=== PATIENT | female | born 1965 | race Caucasian/White ===

== ENCOUNTER → 2016-09-25 | Outpatient (REF) | payer OTHER ==
[~2016-09-25] MED LIST: /BUSP5TA; /ESCI20TA; /ESCI20TA OR; /FENT25PA TD; /ONDA4TA; Buspar OR; COLA100C2 OR; HYOMAX OR; HYOMAX PO; HYOMAX-SL; IBUP400T OR; LISI20TA5; LISI40TA; LISI40TA OR; LORTAB; NEUR100C OR; OMEP20TA7 OR; PRIL40CA; TRAM50TA2; TRAM50TA2 OR; VICO5TAB; VICO5TAB OR; ZANA4CAP OR; [UNRECOGNIZED DRUG - OTHER]; astelin
[2016-09-25 11:56] LABS: MEAN CORPUSCULAR HGB CONC 34.2 g/dl (32.0-36.5); MEAN CORPUSCULAR VOLUME 87.8 fl (80.0-96.0); RED CELL DISTRIBUTION WIDTH 13.9 % (11.5-14.5); WHITE BLOOD COUNT 4.2 K/mm3 (4.0-10.0)
[2016-09-25 12:31] LABS: ALBUMIN/GLOBULIN RATIO 1.54 (1.00-1.93); ALKALINE PHOSPHATASE 71 U/L (45-117); ALT/SGPT 26 U/L (12-78); ANION GAP 10 MEQ/L (8-16); AST/SGOT 16 U/L (15-37); BLOOD UREA NITROGEN 10 MG/DL (7-18); CALCIUM LEVEL 9.2 MG/DL (8.5-10.1); CARBON DIOXIDE LEVEL 27 MEQ/L (21-32); CHLORIDE LEVEL 107 MEQ/L (98-107); CHOLESTEROL LEVEL 145 MG/DL (<200); CREATININE FOR GFR 0.88 MG/DL (0.55-1.02); GLOMERULAR FILTRATION RATE > 60.0 (>51); GLUCOSE, FASTING 91 MG/DL (70-105); PERCENT SATURATION 29.8 % (13.2-37.4); POTASSIUM SERUM 4.4 MEQ/L (3.5-5.1); SODIUM LEVEL 144 MEQ/L (136-145); TOTAL IRON BINDING CAPACITY 319 UG/DL (250-450); TOTAL PROTEIN 6.6 GM/DL (6.4-8.2); TRIGLYCERIDES LEVEL 118 MG/DL (<150)
== END ==
LOC: M LABDRAW1 11:42
PROVIDERS: ATTEND Family Medicine
DX: D64.9 Anemia, unspecified (principal); E03.9 Hypothyroidism, unspecified

== ENCOUNTER → 2017-02-03 | Outpatient (CLI) | payer OTHER ==
--- NOTE | 2017-02-05 11:38 | SLEEPCENT ---
DATE OF PROCEDURE: 02/03/2017 REQUESTING PROVIDER: Sun Guillen NP INTERPRETATION: Nocturnal polysomnography was performed due to concern for obstructive sleep apnea syndrome in this patient with a history of excessive somnolence. 8 hours and 29 minutes of data were reviewed. There were 425 minutes of sleep identified. Sleep latency was mildly prolonged at 24 minutes. Rapid eye movement (REM) latency was also mildly prolonged at 152 minutes. Sleep architecture was fair with three REM periods. Significant fragmentation was seen, particularly early in the study. Overall sleep efficiency was 84%. The patient's electrocardiogram (EKG) showed a sinus rhythm with an average heart rate of 62 beats per minute. Electroencephalogram (EEG) showed reasonably normal waveforms for awake and sleep. There were 93 respiratory events identified of 10 seconds in duration or greater for an apnea-hypopnea index of 13.1. The events were primarily obstructive, not exclusive to sleep stage, more common but not exclusive in the supine posture. Arousals from respiratory events occurred 7.5 times per hour. Oxygen desaturations were seen into the mid 80s. There was also some limb activity appreciated, two trains of 30 events. Limb movement arousal index of 8.5. IMPRESSION: 1. Obstructive sleep apnea syndrome (G47.33). Apnea-hypopnea index of 13.1. 2. Mild periodic limb movement disorder (G47.61). Limb movement arousal index of 8.5. RECOMMENDATIONS: The patient should be encouraged to return to the sleep disorder center for pressure therapy. In the interim, alcohol and sedative avoidance should be practiced and caution exercised during the operation of motor vehicles. Pending response to pressure therapy, interventions to reduce the frequency of arousals from limb activity may also be helpful.
== END ==
LOC: M SLEEP 19:54
PROVIDERS: ATTEND Nurse Practitioner Adult Health
DX: G47.33 Obstructive sleep apnea (adult) (pediatric) (principal); G47.61 Periodic limb movement disorder

== ENCOUNTER → 2017-02-18 | Outpatient (CLI) | payer OTHER ==
--- NOTE | 2017-02-24 21:33 | SLEEPCENT ---
DATE OF PROCEDURE: 02/18/2017 REFERRING PHYSICIAN: Sun Guillen Nocturnal polysomnography was performed for the titration of pressure therapy in this patient with obstructive sleep apnea syndrome, apnea-hypopnea index of 13. For testing, the patient was fit with a GreenPal Simplus full face mask of small size. 4 cm of water pressure were applied to the circuit and the lights were extinguished. 8 hours and 24 minutes of data were reviewed. There were 337 minutes of sleep identified. Sleep latency was prolonged at 70 minutes. Rapid eye movement latency was prolonged at 150 minutes. Sleep architecture improved with optimal pressure therapy. There was some fragmentation late in the study. Two REM periods were appreciated. Overall sleep efficiency was 68.1%. The patient's EKG showed a sinus rhythm with an average heart rate of 54 beats per minute. EEG showed reasonably normal waveforms for awake and sleep. Respiratory events were found best palliated with CPAP at a pressure +7. CPAP tolerance was good. There was some limb activity noted. Three trains of 30 events. Limb movement arousal index was 8.9 consistent with the diagnostic night. IMPRESSION: 1. Obstructive sleep apnea syndrome (G47.33). 2. Mild periodic limb movement disorder (G47.61). RECOMMENDATION: Nightly use of pressure therapy at 7 cm of water should be sufficient to address the patient's respiratory events. Should sleep symptoms persist interventions to reduce the frequency of arousal from limb activity may also be helpful.
== END ==
LOC: M SLEEP 19:42
PROVIDERS: ATTEND Nurse Practitioner Adult Health
DX: G47.33 Obstructive sleep apnea (adult) (pediatric) (principal); G47.61 Periodic limb movement disorder

== ENCOUNTER → 2018-11-02 | Outpatient (REF) | payer OTHER ==
[~2018-11-02] MED LIST changes: -/ESCI20TA; -/ESCI20TA OR; -/FENT25PA TD; -/ONDA4TA; +FENT1DIS14 TD; +LEXA1TAB2; +LEXA1TAB2 OR; +ONDA-1
[2018-11-02 13:16] LABS: ALBUMIN 4.2 GM/DL (3.2-5.2); ALT/SGPT 18 U/L (12-78); BILIRUBIN,TOTAL 1.1 MG/DL (0.2-1.0); BLOOD UREA NITROGEN 13 MG/DL (7-18); CARBON DIOXIDE LEVEL 27 MEQ/L (21-32); CHLORIDE LEVEL 107 MEQ/L (98-107); CHOLESTEROL LEVEL 183 MG/DL (<200); CHOLESTEROL RISK RATIO 3.519 (<5); CREATININE FOR GFR 0.77 MG/DL (0.55-1.30); GLOMERULAR FILTRATION RATE > 60.0 (>51); GLUCOSE, FASTING 86 MG/DL (70-100); HDL CHOLESTEROL 52 MG/DL (>40); IRON (FE) 91 UG/DL (50-170); LDL CHOLESTEROL 110 MG/DL (<100); NON-HDL-C 131 MG/DL; PERCENT SATURATION 35.1 % (13.2-45.0); POTASSIUM SERUM 3.7 MEQ/L (3.5-5.1); SODIUM LEVEL 141 MEQ/L (136-145); TOTAL IRON BINDING CAPACITY 259 UG/DL (250-450); TOTAL PROTEIN 6.9 GM/DL (6.4-8.2); TRIGLYCERIDES LEVEL 104 MG/DL (<150); VITAMIN B12 LEVEL 496 PG/ML (247-911)
[2018-11-02 14:05] LABS: HEMATOCRIT 38.6 % (36.0-47.0); HEMOGLOBIN 12.8 g/dl (12.0-15.5); MEAN CORPUSCULAR HEMOGLOBIN 31.9 pg (27.0-33.0); MEAN CORPUSCULAR HGB CONC 33.2 g/dl (32.0-36.5); MEAN CORPUSCULAR VOLUME 96.3 fl (80.0-96.0); PLATELET COUNT, AUTOMATED 179 10^3/uL (150-450); RED BLOOD COUNT 4.01 10^6/uL (4.00-5.40); WHITE BLOOD COUNT 3.5 10^3/uL (4.0-10.0)
== END ==
LOC: M LABDRAW1 11:49
PROVIDERS: ATTEND Family Medicine
DX: R10.9 Unspecified abdominal pain (principal); D64.9 Anemia, unspecified; R53.83 Other fatigue

== ENCOUNTER → 2018-11-04 | Outpatient (CLI) | payer OTHER ==
[~2018-11-04] MED LIST changes: +GASTROGRAFIN SOLUTION 30ML (Q9963) As Ordered ONE; +ISOVUE-370 76% 100ML VIAL (Q9967) As Ordered ONE
--- NOTE | 2018-11-04 14:59 | REP ---
Clinical: Fatigue. Comparison: 07/31/2013 . Technique: PA and lateral. Findings: The mediastinum and cardiac silhouette are normal. The lung marion are clear and without acute consolidation, effusion, or pneumothorax. The skeletal structures are intact and normal. Impression: 1. No acute cardiopulmonary process. Electronically Signed by Nitin Walter MD 11/04/2018 02:50 P
--- NOTE | 2018-11-04 16:46 | REP ---
Clinical: Left lower quadrant pain. Technique: Axial contrast enhanced images from the lung bases to the pubic symphysis using oral (per protocol) and 100 ml Isovue 370 intravenous contrast material with coronal and sagittal re-formations. Findings: The large bowel is collapsed, but mucosal thickening and mild colitis involving the distal transverse through sigmoid colon cannot be excluded. The small bowel is unremarkable and there is no evidence for obstruction. Normal terminal ileum, cecum, and appendix identified in the right lower quadrant. Liver, spleen, pancreas, bilateral adrenal glands and kidneys are normal. A evidence for prior cholecystectomy. Pelvis demonstrates normal bladder and evidence for prior hysterectomy. No ascites. No free air. No obvious adenopathy. Abdominal aorta without aneurysm or dissection. Musculoskeletal structures demonstrate age-related changes without significant focal osseous abnormality. Lung bases are clear. Impression: 1. Cannot exclude a mild colitis involving the distal transverse through sigmoid colon and correlation is recommended. 2. Remainder examination appears normal. Electronically Signed by Nitin Walter MD 11/04/2018 04:37 P
== END ==
LOC: M RAD 14:19
PROVIDERS: ATTEND Family Medicine
DX: R10.32 Left lower quadrant pain (principal); K56.699 Other intestinal obstruction unspecified as to partial versus complete obstruction
CPT/HCPCS: 71046; 74177; Q9963; Q9967

== ENCOUNTER 2019-04-02 16:32 | Emergency (ER) | payer OTHER ==
[~2019-04-02] VITALS: Ht 162.6 cm; Wt 62.6 kg
[~2019-04-02 16:32] MED LIST changes: -GASTROGRAFIN SOLUTION 30ML (Q9963) As Ordered ONE; -ISOVUE-370 76% 100ML VIAL (Q9967) As Ordered ONE
[2019-04-02] MEDS ORDERED: AMOX875T2 (16:39)
[2019-04-02] MEDS ORDERED: LIDOCAINE 1% MDV 20ML VIAL SC ONE (17:15)
[2019-04-02 17:45] VITALS: BP 140/70
== END 2019-04-02 18:16 | disposition home or self-care (01) ==
LOC: M ED 16:32
DX: S61.411A Laceration without foreign body of right hand, initial encounter (principal); W25.XXXA Contact with sharp glass, initial encounter; Y92.099 Unspecified place in other non-institutional residence as the place of occurrence of the external cause; Y93.89 Activity, other specified; Y99.9 Unspecified external cause status; Z86.73 Personal history of transient ischemic attack (TIA), and cerebral infarction without residual deficits; I10 Essential (primary) hypertension; J45.909 Unspecified asthma, uncomplicated; J30.2 Other seasonal allergic rhinitis; Z90.49 Acquired absence of other specified parts of digestive tract; F41.9 Anxiety disorder, unspecified; F32.9 Major depressive disorder, single episode, unspecified; Z88.8 Allergy status to other drugs, medicaments and biological substances

== ENCOUNTER → 2019-09-13 | Outpatient (CLI) | payer OTHER ==
[~2019-09-13] MED LIST changes: +AMOX875T2
[2019-09-13 07:01] LABS: HEMATOCRIT 41.3 % (36.0-47.0); HEMOGLOBIN 13.6 g/dl (12.0-15.5); MEAN CORPUSCULAR HEMOGLOBIN 31.9 pg (27.0-33.0); MEAN CORPUSCULAR HGB CONC 32.9 g/dl (32.0-36.5); MEAN CORPUSCULAR VOLUME 96.9 fl (80.0-96.0); PLATELET COUNT, AUTOMATED 183 10^3/uL (150-450); RED BLOOD COUNT 4.26 10^6/uL (4.00-5.40); WHITE BLOOD COUNT 4.4 10^3/uL (4.0-10.0)
[2019-09-13 07:18] LABS: HEMOGLOBIN A1c 4.6 %
[2019-09-13 07:38] LABS: ALBUMIN 4.3 GM/DL (3.2-5.2); ALT/SGPT 21 U/L (12-78); BILIRUBIN,TOTAL 0.8 MG/DL (0.2-1.0); BLOOD UREA NITROGEN 12 MG/DL (7-18); CALCIUM LEVEL 9.3 MG/DL (8.5-10.1); CARBON DIOXIDE LEVEL 31 MEQ/L (21-32); CHLORIDE LEVEL 105 MEQ/L (98-107); CHOLESTEROL LEVEL 205 MG/DL (<200); CHOLESTEROL RISK RATIO 2.971 (<5); CREATININE FOR GFR 0.78 MG/DL (0.55-1.30); GLOMERULAR FILTRATION RATE > 60.0 (>51); GLUCOSE, FASTING 82 MG/DL (70-100); HDL CHOLESTEROL 69 MG/DL (>40); IRON (FE) 91 UG/DL (50-170); LDL CHOLESTEROL 120 MG/DL (<100); NON-HDL-C 136 MG/DL; PERCENT SATURATION 32.5 % (13.2-45.0); POTASSIUM SERUM 3.8 MEQ/L (3.5-5.1); SODIUM LEVEL 141 MEQ/L (136-145); TOTAL IRON BINDING CAPACITY 280 UG/DL (250-450); TOTAL PROTEIN 7.5 GM/DL (6.4-8.2); TRIGLYCERIDES LEVEL 82 MG/DL (<150)
== END ==
LOC: M LAB 06:19
PROVIDERS: ATTEND Family Medicine
DX: R53.83 Other fatigue (principal); D64.9 Anemia, unspecified; E03.9 Hypothyroidism, unspecified

== ENCOUNTER → 2019-09-22 | Outpatient (CLI) | payer OTHER ==
[~2019-09-22] MED LIST changes: +E-Z-GAS II EFFERVESCENT PACKET (SODIUM BICARB./CITRIC ACID/SIMETHICONE) As Ordered ONE; +E-Z-HD 98% w/w 340GM SUSP BTL As Ordered ONE; +E-Z-PAQUE 96% w/w SUSP 176GM BTL As Ordered ONE
--- NOTE | 2019-09-22 17:11 | REP ---
Examination Requested: Upper G.I. Series With KUB Reason For Exam: Abdomen pain Upper GI Air Contrast The procedure was performed by SANDOVAL Powell, under the direct supervision of Dr. Pineda. The images were reviewed with Dr. Pineda. The freelance designer film shows no organomegaly or pathological masses. The intestinal gas pattern appears normal. There are surgical clips in the right upper quadrant. Liquid barium and gas producing crystals were given in the erect position as well as liquid barium in the prone oblique position in order to perform a double contrast upper GI examination. The oral and pharyngeal stages of deglutition were unremarkable. Esophageal transport is efficient and there is no esophagitis, stricture, or mucosal ring noted. There is no hiatal hernia. Gastroesophageal reflux was not visualized throughout the course of the exam. The stomach murillo are normally outlined. The rugal folds are smooth and regular. There is no gastritis, neoplasm, ulcer disease noted. The duodenal murillo are normally outlined. The mucosal folds are smooth and regular. There is no duodenitis, peptic ulcer disease, or neoplasm noted. The visualized portion of the proximal small bowel appears normal in course and caliber. Impression: 1. Unremarkable upper GI study. 0.4 minutes of fluoroscopy time was utilized for this procedure. Some fluoroscopic images are performed with last image hold technology. These images require no additional radiation. Reviewed by SANDOVAL Ta 09/22/2019 03:48 P Electronically Signed by Hebert Pineda MD 09/22/2019 05:01 P
== END ==
LOC: M RAD 08:50
PROVIDERS: ATTEND Family Medicine
DX: R10.9 Unspecified abdominal pain (principal)

== ENCOUNTER → 2019-12-04 | Outpatient (CLI) | payer OTHER ==
[~2019-12-04] MED LIST changes: -E-Z-GAS II EFFERVESCENT PACKET (SODIUM BICARB./CITRIC ACID/SIMETHICONE) As Ordered ONE; -E-Z-HD 98% w/w 340GM SUSP BTL As Ordered ONE; -E-Z-PAQUE 96% w/w SUSP 176GM BTL As Ordered ONE
[2019-12-04 09:58] LABS: HEMATOCRIT 39.2 % (36.0-47.0); HEMOGLOBIN 12.9 g/dl (12.0-15.5); MEAN CORPUSCULAR HEMOGLOBIN 31.2 pg (27.0-33.0); MEAN CORPUSCULAR HGB CONC 32.9 g/dl (32.0-36.5); MEAN CORPUSCULAR VOLUME 94.9 fl (80.0-96.0); PLATELET COUNT, AUTOMATED 161 10^3/uL (150-450); RED BLOOD COUNT 4.13 10^6/uL (4.00-5.40); WHITE BLOOD COUNT 4.1 10^3/uL (4.0-10.0)
[2019-12-04 10:26] LABS: BLOOD UREA NITROGEN 12 MG/DL (7-18); CREATININE FOR GFR 0.78 MG/DL (0.55-1.30); GLUCOSE, FASTING 87 MG/DL (70-100)
[2019-12-04 10:27] LABS: ALT/SGPT 20 U/L (12-78); BILIRUBIN,TOTAL 0.7 MG/DL (0.2-1.0); CALCIUM LEVEL 9.1 MG/DL (8.5-10.1); CARBON DIOXIDE LEVEL 30 MEQ/L (21-32); CHLORIDE LEVEL 107 MEQ/L (98-107); CHOLESTEROL LEVEL 212 MG/DL (<200); CHOLESTEROL RISK RATIO 3.117 (<5); GLOMERULAR FILTRATION RATE > 60.0 (>51); HDL CHOLESTEROL 68 MG/DL (>40); IRON (FE) 89 UG/DL (50-170); LDL CHOLESTEROL 130 MG/DL (<100); NON-HDL-C 144 MG/DL; POTASSIUM SERUM 4.1 MEQ/L (3.5-5.1); SODIUM LEVEL 142 MEQ/L (136-145); THYROXINE (T4) 6.4 UG/DL (4.5-12.0); TOTAL IRON BINDING CAPACITY 262 UG/DL (250-450); TOTAL PROTEIN 7.1 GM/DL (6.4-8.2); TRIGLYCERIDES LEVEL 69 MG/DL (<150)
[2019-12-04 10:29] LABS: TOTAL T3 57.6 NG/DL (60.0-181.0); VITAMIN B12 LEVEL 745 PG/ML (247-911)
[2019-12-04 10:41] LABS: TOTAL 25(OH) VITAMIN D 108.2 NG/ML (30.0-100.0)
== END ==
LOC: M LAB 09:17
PROVIDERS: ATTEND Family Medicine
DX: D64.9 Anemia, unspecified (principal); R53.83 Other fatigue

== ENCOUNTER → 2019-12-07 | Outpatient (CLI) | payer OTHER ==
--- NOTE | 2019-12-08 05:52 | REP ---
Clinical: Enlarged thyroid gland. Technique: Real time armendariz scale and color evaluation using linear high frequency transducer. Findings: The thyroid gland is normal in contour, size, echogenicity and vascularity. Right lobe measures 4.4 x 1.0 x 1.6 cm. Isthmus measures 2 mm in width. Left lobe measures 4.0 x 1.0 x 1.0 cm. Midline anterior to the thyroid gland is a complex cystic lesion measuring 3.2 x 2.8 x 2.9 cm. Suggesting a large thyroglossal duct cyst. Impression: 1. Normal thyroid gland. 2. Complex cystic lesion midline anterior to the thyroid likely representing thyroglossal duct cyst. Correlation with physical examination and MRI of the neck may be warranted for confirmation.
== END ==
LOC: M WHC 09:50
PROVIDERS: ATTEND Family Medicine
DX: E04.9 Nontoxic goiter, unspecified (principal)

== ENCOUNTER → 2020-01-18 | Outpatient (REF) | payer OTHER | LOC: M LAB REF 15:47 | PROVIDERS: ATTEND Physician Assistant | DX: Z20.828 Contact with and (suspected) exposure to other viral communicable diseases (principal); J06.9 Acute upper respiratory infection, unspecified ==

== ENCOUNTER → 2020-03-01 | Outpatient (CLI) | payer OTHER ==
--- NOTE | 2020-04-23 16:00 | ECGEPIP ---
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
[2020-04-28 12:49] LABS: BLOOD UREA NITROGEN 10 MG/DL (7-18); CALCIUM LEVEL 9.4 MG/DL (8.5-10.1); CARBON DIOXIDE LEVEL 32 MEQ/L (21-32); CHLORIDE LEVEL 104 MEQ/L (98-107); CREATININE FOR GFR 0.72 MG/DL (0.55-1.30); GLOMERULAR FILTRATION RATE > 60.0 (>51); GLUCOSE, FASTING 83 MG/DL (70-100); SODIUM LEVEL 139 MEQ/L (136-145)
[2020-04-28 14:20] LABS: BASO % 0.6 % (0.0-1.0); EOS # 0.1 10^3/uL (0.0-0.5); EOS % 1.9 % (0.0-3.0); HEMATOCRIT 39.5 % (36.0-47.0); HEMOGLOBIN 13.1 g/dl (12.0-15.5); LYMPH # 2.3 10^3/uL (1.5-5.0); LYMPH % 48.7 % (24.0-44.0); MEAN CORPUSCULAR HEMOGLOBIN 31.2 pg (27.0-33.0); MEAN CORPUSCULAR HGB CONC 33.2 g/dl (32.0-36.5); MONO # 0.3 10^3/uL (0.0-0.8); MONO % 6.4 % (0.0-5.0); NEUTROPHILS % 42.2 % (36.0-66.0); PLATELET COUNT, AUTOMATED 186 10^3/uL (150-450); WHITE BLOOD COUNT 4.7 10^3/uL (4.0-10.0)
== END ==
LOC: M LAB 13:45
PROVIDERS: ATTEND Podiatrist
DX: Z01.818 Encounter for other preprocedural examination (principal); M20.12 Hallux valgus (acquired), left foot; M21.622 Bunionette of left foot; M79.672 Pain in left foot

== ENCOUNTER → 2020-03-07 | Outpatient (CLI) | payer OTHER ==
--- NOTE | 2020-03-27 11:28 | REPMRS ---
Patient History The patient states she has not had a clinical breast exam in over a year. Reductions of both breasts, 2017. Digital Woman Screen Mammo: March 07, 2020 - Exam #: [id number] Bilateral CC and MLO view(s) were taken. Technologist: Radha Mcintosh, Technologist Prior study comparison: 2015, bilateral digital mammo screening bilat. November 14, 2013, bilateral digital mammo screening bilat, performed at [facility]. July 27, 2012, bilateral digital mammo screening bilat, performed at [facility]. FINDINGS: There are scattered fibroglandular densities. The Volpara volumetric breast density category is:B. The patient has undergone bilateral breast reduction surgery. There is a new density in the medial right breast which contains calcifications. This merits further evaluation. This may well be postoperative fat necrosis. There has been no other change in the appearance of the mammogram from the prior studies. There is a mild amount of scattered fibroglandular density which is fairly symmetric. There is no other interval development of dominant mass, architectural distortion, or grouped microcalcification suggestive of malignancy. 3-D tomosynthesis shows no additional findings. Report was delayed due to a protracted computer network disruption experienced by this facility. Assessment: BI-RADS/ACR category 0 mammogram, Incomplete: Need additional imaging evaluation and/or prior mammograms for comparison. Recommendation Ultrasound and special view mammogram of the right breast. This patient's Lifetime Breast Cancer Risk is estimated at 8.7 %. This mammogram was interpreted with the aid of an FDA-approved computer-aided dectection system. Electronically Signed By: Mazin Pineda MD 03/27/20 [id number]
== END ==
LOC: M WHC 06:30
PROVIDERS: ATTEND Family Medicine
DX: Z12.31 Encounter for screening mammogram for malignant neoplasm of breast (principal)

== ENCOUNTER 2020-03-08 06:35 | Day surgery (SDC) | payer OTHER ==
[2020-03-08] MEDS ORDERED: NEOSPORIN GU IRRIG 20 ML VIAL ONE (06:43)
[2020-03-08] MEDS ORDERED: BACITRACIN PWD 50,000 UNITS VIAL ONE (06:43)
[2020-03-08] MEDS ORDERED: ceFAZolin 2 GM/D5W 50 ML IV BAG (J0690 PER 500MG) ONE (06:43)
[2020-03-08] MEDS ORDERED: BUPIVACAINE HCL 0.5% 30 ML VIAL ONE (06:43)
[2020-03-08] MEDS ORDERED: dexameTHASONE 4 MG/ML 1ML VIAL (J1100 PER 1MG) ONE (06:43)
[2020-03-08] MEDS ORDERED: LIDOCAINE 2% MDV 20ML VIAL ONE (06:43)
[2020-03-08] MEDS ORDERED: MIDAZOLAM INJ 2MG/2ML VIAL (J2250 PER 1MG) ONE (07:01)
[2020-03-08] MEDS ORDERED: propofoL 500 MG/50 ML VIAL ONE (07:01)
[2020-03-08] MEDS ORDERED: fentaNYL 100 MCG/2 ML INJECTION (J3010) ONE (07:01)
[2020-03-08] MEDS ORDERED: ONDANSETRON 4MG/2ML VIAL ONE (07:01)
[2020-03-08] MEDS ORDERED: PHENYLephrine HCL 500 MCG/5 ML (100MCG/ML) SYRINGE (J2370) ONE (08:21)
[2020-03-08] MEDS ORDERED: oxyCODONE 5MG TAB ONE (09:48)
--- NOTE | 2020-04-30 10:07 | REP ---
LEFT FOOT PORTABLE HISTORY: Bunionectomy. TECHNIQUE: Three views of the left foot are performed. FINDINGS: Surgical defect is seen in the distal aspect of the first metatarsal affixed by a metallic screw. There is also a surgical defect in the distal fifth metatarsal affixed by a metallic screw. The osseous structures appear well aligned. MTDD
--- NOTE | 2020-05-09 13:04 | RO ---
DATE OF OPERATION: 03/08/2020 SURGEON: Man Yap DPM BRIDGE TOLL COLLECTOR: None. ANESTHESIA: Local monitored anesthesia care (MAC). IRRIGATION: Dilute bacitracin, neomycin, and polymyxin B solution. HEMOSTASIS: Ankle pneumatic tourniquet at 225 mm of mercury for 56 minutes on the left ankle. HARDWARE UTILIZED: An Arthrex headless 3.0 x 18 and an Arthrex headless 2.4 x 14 mm compression screw. PROCEDURE: On 03/08/2020, patient was taken from her hospital room to the operating room and placed on the operating table in the supine position. Following the induction of intravenous (IV) sedation and local and regional anesthesia, left lower extremity was prepped and draped in the usual aseptic manner. Ankle pneumatic tourniquet was rapidly inflated to 225 mm of mercury. Sterile draping was completing and the following procedure was performed: MODIFIED ABDULAZIZ BUNIONECTOMY, INTERNAL SCREW FIXATION, 3.0 MM X 18 MM TIMES ONE, LEFT FOOT: Attention was directed to patient's left foot. There was noted to be a hallux valgus deformity. At this time, a 6 cm incision was placed over the 1st metatarsophalangeal joint medial to the extensor tendon. The incision was deepened into subcutaneous tissues, and all coursing venous tributaries were identified, underscored, clamped, cut, ligated or electrocoagulated as necessary. Linear capsulotomy was performed in the same plane as the original skin incision. The capsule and periosteal structures were dissected free in one continuous layer, dorsally, medially, and laterally, thus creating a capsular periosteal-type envelope. This allowed me to view the hypertrophied medial eminence of the 1st metatarsal, which osteotomized from distal the proximal through the through. This was extirpated from the wound. Attention was then directed into the 1st intermetatarsal space, where dissection was carried down to the level of the conjoined tendon. Conjoined tendon was sharply dissected free from the fibular sesamoid. Attention was directed to the medial surface of the 1st metatarsal, where a V-shaped osteotomy was performed in the distal metaphysis of the 1st metatarsal at the long plantar and short dorsal wing. Upon creation of this osteotomy, the capital fragment was transposed approximately 40% of the width of the shaft of the 1st metatarsal and fixated with a 3.0 x 18 mm headless compression screw. The osteotomy was noted to be stable. The screw did not penetrate the inferior cartilage on direct visualization. The redundant cortical spike was then osteotomized from dorsal to plantar through and through. The wound was flushed with copious amounts of dilute bacitracin, neomycin, and polymyxin B solution. Attention was directed toward closure, where the capsular structures were coapted and maintained utilizing 2-0 Monocryl in a simple interrupted-type fashion. Subcutaneous tissues were coapted and maintained utilizing 4-0 Monocryl in a simple interrupted-type fashion. Skin incisions were coapted and maintained utilizing 5-0 Monocryl in a continuous subcuticular-type fashion. Attention was then directed to the lateral surface of the foot, where the following procedure was performed. CORRECTION OF BUNIONETTE DEFORMITY WITH DISTAL V OSTEOTOMY AND INTERNAL SCREW FIXATION, 2.4 MM X 14 MM TIMES ONE, LEFT FOOT: Attention was directed to the patient's left foot. There was noted to be a tailor's bunion deformity. At this time, a 5 cm lateral incision was placed over the 5th metatarsophalangeal joint. The incision was deepened into subcutaneous tissues, and all coursing venous tributaries were identified, underscored, clamped, cut, ligated or electrocoagulated as necessary. A linear capsulotomy was then performed in the same plane as the original skin incision. The capsular and periosteal structures were then dissected free in one continuous layer dorsally and plantarly. The hypertrophied lateral eminence was then osteotomized from distal to proximal through and through. A V-shaped osteotomy was then performed in the distal metaphysis of the 5th metatarsal and transposed approximately 30-35% of the width of the shaft of the 1st metatarsal. A 2.4 x 12 mm screw was placed across the osteotomy; however, insufficient stability was noted. Therefore, a longer screw, 2.4 x 14 mm screw, was inserted. This provided excellent compression of the osteotomy and was stable in all three cardinal planes. The redundant cortical spike was then osteotomized from dorsal to plantar through and through. The lateral surface was rasped to a smooth contour with a hand-held rasp. The wound was flushed with copious amounts of dilute bacitracin, neomycin, and polymyxin B solution. Capsular structures were coapted and maintained utilizing 2-0 Monocryl in a simple interrupted-type fashion. Subcutaneous tissues were coapted and maintained utilizing 4-0 Monocryl in a simple interrupted-type fashion. Skin incision was coapted and maintained utilizing 5-0 Monocryl in a continuous subcuticular-type fashion. This was additionally reinforced with Steri-Strips. Following the completion of the surgical procedure, 4 mg of dexamethasone sodium phosphate was instilled proximal to the surgical site. Attention was directed toward banding. A sterile compressive bandage was applied consisting of Adaptic, 4 x 4's, 4 x 4 sponge, Lukasz, Kerlix, and Coban. Ankle pneumatic tourniquet was rapidly deflated, and instantaneous capillary filling time was noted to digits 1-5 of the patient's left foot. Patient having apparently tolerated the surgical procedure well was taken from the OR to the recovery room for further monitoring by the anesthesia department. Postoperative instructions were given upon discharge. ROSANNE
== END 2020-03-08 11:25 | disposition home or self-care (01) ==
LOC: M SDC 06:35
PROVIDERS: ATTEND Podiatrist
DX: M21.622 Bunionette of left foot (principal); M20.12 Hallux valgus (acquired), left foot; M79.672 Pain in left foot; E03.9 Hypothyroidism, unspecified; K58.8 Other irritable bowel syndrome; G47.30 Sleep apnea, unspecified; Z88.8 Allergy status to other drugs, medicaments and biological substances; Z79.899 Other long term (current) drug therapy
CPT/HCPCS: 28110; 28296; 73630; 88300; 97116; 97161; C1713; J0690; J1100; J2250; J2370; J2405; J3010

== ENCOUNTER → 2020-04-21 | Outpatient (CLI) | payer OTHER ==
[2020-04-21 14:49] LABS: HEMATOCRIT 39.4 % (36.0-47.0); MEAN CORPUSCULAR HEMOGLOBIN 31.4 pg (27.0-33.0); MEAN CORPUSCULAR VOLUME 95.2 fl (80.0-96.0); PLATELET COUNT, AUTOMATED 195 10^3/uL (150-450); RED BLOOD COUNT 4.14 10^6/uL (4.00-5.40); WHITE BLOOD COUNT 4.3 10^3/uL (4.0-10.0)
[2020-04-21 15:21] LABS: ALT/SGPT 23 U/L (12-78); BILIRUBIN,TOTAL 0.6 MG/DL (0.2-1.0); BLOOD UREA NITROGEN 24 MG/DL (7-18); CALCIUM LEVEL 9.2 MG/DL (8.5-10.1); CARBON DIOXIDE LEVEL 28 MEQ/L (21-32); CHLORIDE LEVEL 107 MEQ/L (98-107); CHOLESTEROL LEVEL 224 MG/DL (<200); CREATININE FOR GFR 0.65 MG/DL (0.55-1.30); GLOMERULAR FILTRATION RATE > 60.0 (>51); GLUCOSE, FASTING 74 MG/DL (70-100); HDL CHOLESTEROL 70 MG/DL (>40); LDL CHOLESTEROL 141 MG/DL (<100); NON-HDL-C 154 MG/DL; POTASSIUM SERUM 4.3 MEQ/L (3.5-5.1); SODIUM LEVEL 139 MEQ/L (136-145); TOTAL PROTEIN 7.1 GM/DL (6.4-8.2); TRIGLYCERIDES LEVEL 67 MG/DL (<150)
[2020-04-21 15:38] LABS: HEMOGLOBIN A1c 5.2 %
[2020-04-22 11:03] LABS: TOTAL 25(OH) VITAMIN D 68.5 NG/ML (30.0-100.0)
== END ==
LOC: M WUC 08:30
PROVIDERS: ATTEND Family Medicine
DX: D64.9 Anemia, unspecified (principal); R53.83 Other fatigue; E03.9 Hypothyroidism, unspecified

== ENCOUNTER → 2020-05-13 | Outpatient (CLI) | payer OTHER ==
--- NOTE | 2020-05-16 11:02 | REP ---
DIGITAL DIAGNOSTIC UNILATERAL RIGHT BREAST MAMMOGRAPHY WITH CAD AND TARGETED RIGHT BREAST SONOGRAPHY HISTORY: Screening mammography from 03/07/2020 showed a grouping of calcifications in the medial aspect of the right breast. Diagnostic imaging was recommended. COMPARISON: Made with 02/19/2016 prior mammography. In the interval since that prior exam, the patient has undergone reduction breast surgery. MAMMOGRAPHIC FINDINGS: Magnified focal spot compression CC mediolateral and mediolateral oblique views are obtained. These confirm the presence of an irregular density containing coarse dystrophic benign appearing calcifications and some punctate calcifications in the right breast medially at approximately 2 to 3 o'clock. Scattered fibroglandular elements are seen. No other mammographic abnormality. The calcifications span an area approximately 8 mm in greatest diameter. TARGETED SONOGRAPHY FINDINGS: The right breast is evaluated superiorly and medially. At 2 o'clock, 2 cm from the nipple, there is a hypoechoic area with its long axis parallel to the skin containing echogenic shadowing foci. No irregular mass lesion is seen. It measures approximately 8 mm in overall dimension. IMPRESSION: Typically benign appearing dystrophic calcifications most consistent with postoperative change possibly fat necrosis. BI-RADS Category is felt to be best assigned as category 3 probably benign right breast findings. Six month follow- up right breast mammography recommended. This mammogram was read with the aid of an FDA approved computer-aided detection device. 3M patient letter: M3. The patients [facility] lifetime risk of breast cancer risk assessment is 8.7%. MTDD
== END ==
LOC: M WHC 08:01
PROVIDERS: ATTEND Family Medicine
DX: R92.2 Inconclusive mammogram (principal); Z98.890 Other specified postprocedural states

== ENCOUNTER → 2020-07-03 | Outpatient (CLI) | payer OTHER ==
--- NOTE | 2020-07-04 04:21 | REP ---
INDICATION: LLQ PAIN, LLQ MASS COMPARISON: 11/04/2018 TECHNIQUE: Axial noncontrast images from the lung bases to the pubic symphysis with coronal and sagittal reformations. This CT examination was performed using the following dose reduction techniques: Automated exposure control, adjustment of mA and/or kv according to the patient's size, and use of iterative reconstruction technique. FINDINGS: Lung bases are clear. Visualized heart and pericardium normal. Liver, spleen, pancreas, bilateral adrenal glands and kidneys are normal. The enteric system is unremarkable and without obstruction or acute inflammatory process. Normal cecum along with terminal ileum and appendix identified in the deep pelvis. Pelvis demonstrates normal bladder and age-appropriate uterus/adnexa. No ascites. No free air. No adenopathy. No focal inflammatory stranding. Abdominal aorta without aneurysm. Musculoskeletal structures are intact and without acute osseous abnormality. IMPRESSION: No acute abdominopelvic pathology appreciated. <Electronically signed by Nitin Walter > 07/04/20 0418
== END ==
LOC: M RAD 15:15
PROVIDERS: ATTEND Family Medicine
DX: R10.2 Pelvic and perineal pain (principal); R10.32 Left lower quadrant pain

== ENCOUNTER → 2020-11-12 | Outpatient (CLI) | payer OTHER ==
[2020-11-12 16:52] LABS: BASO % 0.5 % (0.0-1.0); EOS # 0.1 10^3/uL (0.0-0.5); EOS % 2.3 % (0.0-3.0); HEMATOCRIT 36.9 % (36.0-47.0); HEMOGLOBIN 12.1 g/dl (12.0-15.5); LYMPH # 2.1 10^3/uL (1.5-5.0); LYMPH % 47.2 % (24.0-44.0); MEAN CORPUSCULAR HEMOGLOBIN 32.1 pg (27.0-33.0); MEAN CORPUSCULAR HGB CONC 32.8 g/dl (32.0-36.5); MEAN CORPUSCULAR VOLUME 97.9 fl (80.0-96.0); MONO # 0.3 10^3/uL (0.0-0.8); MONO % 6.7 % (2.0-8.0); NEUTROPHILS # 1.9 10^3/uL (1.5-8.5); NEUTROPHILS % 43.1 % (36.0-66.0); PLATELET COUNT, AUTOMATED 180 10^3/uL (150-450); RED BLOOD COUNT 3.77 10^6/uL (4.00-5.40); WHITE BLOOD COUNT 4.3 10^3/uL (4.0-10.0)
== END ==
LOC: M LAB 16:01
PROVIDERS: ATTEND Student in an Organized Health Care Education/Training Program
DX: Q89.2 Congenital malformations of other endocrine glands (principal)

== ENCOUNTER → 2021-06-25 | Outpatient (CLI) | payer OTHER ==
[2021-06-25 11:15] LABS: HEMATOCRIT 39.8 % (36.0-47.0); HEMOGLOBIN 12.8 g/dl (12.0-15.5); MEAN CORPUSCULAR HGB CONC 32.2 g/dl (32.0-36.5); MEAN CORPUSCULAR VOLUME 96.4 fl (80.0-96.0); PLATELET COUNT, AUTOMATED 169 10^3/uL (150-450); RED BLOOD COUNT 4.13 10^6/uL (4.00-5.40); WHITE BLOOD COUNT 4.4 10^3/uL (4.0-10.0)
[2021-06-25 11:49] LABS: ALBUMIN 3.8 GM/DL (3.2-5.2); ALT/SGPT 19 U/L (12-78); BILIRUBIN,TOTAL 0.5 MG/DL (0.2-1.0); BLOOD UREA NITROGEN 17 MG/DL (7-18); CALCIUM LEVEL 9.5 MG/DL (8.5-10.1); CARBON DIOXIDE LEVEL 29 MEQ/L (21-32); CHLORIDE LEVEL 109 MEQ/L (98-107); CHOLESTEROL LEVEL 205 MG/DL (<200); CHOLESTEROL RISK RATIO 3.253 (<5); CREATININE FOR GFR 0.66 MG/DL (0.55-1.30); FREE T4 0.84 NG/DL (0.76-1.46); GLOMERULAR FILTRATION RATE > 60.0 (>51); GLUCOSE, FASTING 79 MG/DL (70-100); HDL CHOLESTEROL 63 MG/DL (>40); IRON (FE) 87 UG/DL (50-170); LDL CHOLESTEROL 127 MG/DL (<100); NON-HDL-C 142 MG/DL; PERCENT SATURATION 32.8 % (13.2-45.0); POTASSIUM SERUM 4.8 MEQ/L (3.5-5.1); SODIUM LEVEL 143 MEQ/L (136-145); TOTAL IRON BINDING CAPACITY 265 UG/DL (250-450); TOTAL PROTEIN 6.8 GM/DL (6.4-8.2); TRIGLYCERIDES LEVEL 75 MG/DL (<150)
[2021-06-25 11:51] LABS: FOLATE 7.6 NG/ML (>5.4); TOTAL T3 71.3 NG/DL (60.0-181.0); VITAMIN B12 LEVEL 586 PG/ML (247-911)
== END ==
LOC: M LAB 08:29
PROVIDERS: ATTEND Family Medicine
DX: R53.83 Other fatigue (principal); D64.9 Anemia, unspecified; E03.9 Hypothyroidism, unspecified

== ENCOUNTER → 2021-07-28 | Outpatient (CLI) | payer OTHER | LOC: M WHC 11:01 | PROVIDERS: ATTEND Family Medicine | DX: Z12.31 Encounter for screening mammogram for malignant neoplasm of breast (principal); N63.10 Unspecified lump in the right breast, unspecified quadrant; R92.1 Mammographic calcification found on diagnostic imaging of breast ==

== ENCOUNTER → 2021-11-29 | Outpatient (CLI) | payer OTHER ==
[2021-11-29 09:55] LABS: HEMATOCRIT 40.7 % (36.0-47.0); HEMOGLOBIN 13.5 g/dl (12.0-15.5); MEAN CORPUSCULAR HEMOGLOBIN 31.5 pg (27.0-33.0); MEAN CORPUSCULAR HGB CONC 33.2 g/dl (32.0-36.5); MEAN CORPUSCULAR VOLUME 94.9 fl (80.0-96.0); PLATELET COUNT, AUTOMATED 189 10^3/uL (150-450); RED BLOOD COUNT 4.29 10^6/uL (4.00-5.40); WHITE BLOOD COUNT 3.9 10^3/uL (4.0-10.0)
[2021-11-29 10:23] LABS: ALBUMIN 4.1 GM/DL (3.2-5.2); ALT/SGPT 17 U/L (12-78); BILIRUBIN,TOTAL 0.6 MG/DL (0.2-1.0); BLOOD UREA NITROGEN 18 MG/DL (7-18); CALCIUM LEVEL 9.6 MG/DL (8.5-10.1); CARBON DIOXIDE LEVEL 28 MEQ/L (21-32); CHLORIDE LEVEL 109 MEQ/L (98-107); CHOLESTEROL LEVEL 234 MG/DL (<200); CREATININE FOR GFR 0.65 MG/DL (0.55-1.30); GLOMERULAR FILTRATION RATE > 60.0 (>51); GLUCOSE, FASTING 88 MG/DL (70-100); HDL CHOLESTEROL 65 MG/DL (>40); LDL CHOLESTEROL 159 MG/DL (<100); NON-HDL-C 169 MG/DL; POTASSIUM SERUM 4.2 MEQ/L (3.5-5.1); SODIUM LEVEL 141 MEQ/L (136-145); TOTAL PROTEIN 7.2 GM/DL (6.4-8.2); TRIGLYCERIDES LEVEL 52 MG/DL (<150)
[2021-11-29 10:35] LABS: HEMOGLOBIN A1c 4.9 %
== END ==
LOC: M LAB 08:56
PROVIDERS: ATTEND Family Medicine
DX: D64.9 Anemia, unspecified (principal); R53.83 Other fatigue; E03.9 Hypothyroidism, unspecified

== ENCOUNTER → 2024-02-10 | Outpatient (REF) | payer OTHER ==
[2024-02-10 14:24] LABS: PERCENT SATURATION 22.5 % (13.2-45.0)
[2024-02-10 14:26] LABS: FERRITIN 105.6 NG/ML (7.3-270.7)
== END ==
LOC: M LAB REF 12:56
PROVIDERS: ATTEND Internal Medicine
DX: K90.0 Celiac disease (principal); K90.49 Malabsorption due to intolerance, not elsewhere classified

== ENCOUNTER → 2024-04-25 | Outpatient (CLI) | payer OTHER | LOC: M WHC 09:54 | PROVIDERS: ATTEND Internal Medicine | DX: Z12.31 Encounter for screening mammogram for malignant neoplasm of breast (principal); R92.313 Mammographic fatty tissue density, bilateral breasts ==

== ENCOUNTER → 2024-05-19 | Outpatient (CLI) | payer OTHER | LOC: M RAD 16:36 | PROVIDERS: ATTEND Internal Medicine | DX: N20.0 Calculus of kidney (principal); K44.9 Diaphragmatic hernia without obstruction or gangrene ==

== ENCOUNTER → 2024-06-09 | Outpatient (CLI) | payer OTHER | LOC: M WHC 15:42 | PROVIDERS: ATTEND Internal Medicine | DX: I63.9 Cerebral infarction, unspecified (principal) ==

== ENCOUNTER → 2025-05-09 | Outpatient (CLI) | payer OTHER | LOC: M PLAIMG 12:43 | PROVIDERS: ATTEND Internal Medicine | DX: R01.1 Cardiac murmur, unspecified (principal); I34.0 Nonrheumatic mitral (valve) insufficiency; I36.1 Nonrheumatic tricuspid (valve) insufficiency; I37.1 Nonrheumatic pulmonary valve insufficiency ==